=== PATIENT | female | born 1935 | race Caucasian/White ===

== ENCOUNTER 2020-08-22 10:08 | Emergency (ER) | payer OTHER ==
[2020-08-22 10:12] VITALS: PULSE 68; RESP 18; TEMP 98
[2020-08-22] MEDS ORDERED: KETOROLAC 15 MG/ML 1 ML VIAL IM STA (10:30)
--- NOTE | 2020-08-22 10:42 | ED ---
General Adult HPI - General Chief complaint: Extremity Problem,Nontraumatic Stated complaint: Leg pain Time Seen by Provider: 08/22/20 10:14 Source: patient, RN notes reviewed Mode of arrival: wheelchair Limitations: no limitations - History of Present Illness Initial comments: 85-year-old female presents to the emergency room for right leg pain. Patient reports that for about 1 week now she had pain in her right groin. States it is painful to walk on. States it is painful to flex her hip. Patient does not recall injuring this. Patient does states she had new insoles in her shoes and thinks this could've contributed. States she put these in a couple weeks before her hip started hurting. She states sometimes the pain shoots down her leg. She denies any associated back pain or pain in the buttock. Patient denies weakness in the leg. Patient has no other complaints at this time including shortness of breath, chest pain, abdominal pain, nausea or vomiting, headache, or visual changes.. - Related Data Allergies Allergy/AdvReac Type Severity Reaction Status Date / Time codeine AdvReac Vomiting Verified 08/22/20 10:13 Review of Systems ROS Statement: Those systems with pertinent positive or pertinent negative responses have been documented in the HPI. ROS Other: All systems not noted in ROS Statement are negative. Past Medical History Past Medical History: Hypertension History of Any Multi-Drug Resistant Organisms: None Reported Past Surgical History: Cholecystectomy, Hysterectomy Past Psychological History: No Psychological Hx Reported Smoking Status: Never smoker Past Alcohol Use History: None Reported Past Drug Use History: None Reported General Exam Limitations: no limitations General appearance: alert, in no apparent distress Head exam: Present: atraumatic, normocephalic, normal inspection Eye exam: Present: normal appearance, PERRL, EOMI. Absent: scleral icterus, conjunctival injection, periorbital swelling ENT exam: Present: normal exam, mucous membranes moist Neck exam: Present: normal inspection, full ROM. Absent: tenderness, meningism us, lymphadenopathy Respiratory exam: Present: normal lung sounds bilaterally. Absent: respiratory distress, wheezes, rales, rhonchi, stridor Cardiovascular Exam: Present: regular rate, normal rhythm, normal heart sounds. Absent: systolic murmur, diastolic murmur, rubs, gallop, clicks GI/Abdominal exam: Present: soft, normal bowel sounds. Absent: distended, tenderness, guarding, rebound, rigid Extremities exam: Present: tenderness (Minimal tenderness to the groin area.), normal capillary refill (Capillary refill less than 2 seconds, DP and PT pulses 2+.), other (Pain with passive flexion of the right hip. Pain with external rotation of the right leg in the groin. There is no edema, erythema, or ecchymosis). Absent: full ROM (Patient has about 90 flexion of the right hip which does elicit pain. Full range of motion of the right knee and ankle.), pedal edema, joint swelling, calf tenderness (Negative Homans sign) Neurological exam: Present: alert Course Vital Signs 08/22/20 10:10 Temperature 98.0 F Pulse Rate 68 Respiratory 18 Rate Blood Pressure 188/85 O2 Sat by Pulse 97 Oximetry Medical Decision Making - Medical Decision Making Vitals are stable. Patient does have a history of hypertension. Patient is well-appearing. Neurovascular status intact in the right lower extremity. Patient has tenderness of the groin area. No erythema or edema. No evidence of hernia. Pain is with external rotation of the hip and flexion of the hip. States the pain worsens with movement. States she is limping. Symptoms are consistent with a musculoskeletal pain. X-ray was obtained which showed no acute process. Patient was given Toradol. Recommended anti-inflammatories and resting the hip. Recommend she follow up with her doctor for repeat x-rays if symptoms do not improve. She is aware to return for any worsening symptoms. Patient's son can help her around the house. discussed with Dr Whitfield Disposition Clinical Impression: Hip pain, right Disposition: HOME SELF-CARE Condition: Good Instructions (If sedation given, give patient instructions): Hip Pain (ED) Additional Instructions: Please take Motrin and Tylenol for pain. Take 2 to 3 pills of 200 mg Motrin three time a day. Alternate with tylenol. Try to rest the hip. Follow-up with your doctor. If symptoms do not improve you should have a repeat x-ray in 7-10 days. Return to the emergency room for any worsening symptoms. Is patient prescribed a controlled substance at d/c from ED?: No Referrals: Nonstaff,Physician [Primary Care Provider] - 1-2 days Time of Disposition: 11:30
--- NOTE | 2020-08-22 11:07 | XR ---
EXAMINATION TYPE: XR Hip RT and AP Pelvis DATE OF EXAM: 08/22/2020 COMPARISON: None HISTORY: Pain TECHNIQUE: AP pelvis and two-view right hip FINDINGS: No acute fractures are evident. Sacroiliac joint and symphysis pubis are normal. Femoral he ads articulate with the acetabulum. Joint spaces appear preserved. Follow up exams can be performed 7-10 days from acute trauma for continued pain. IMPRESSION: 1. No acute osseous abnormality account for right hip pain
[2020-08-22] MEDS ORDERED: traMADol 50 MG STARTER PACK 3 TAB BTL PO STA (11:20)
[2020-08-22] MEDS ORDERED: ONDANSETRON 4 MG ODT STARTER PACK 2 TAB BTL PO STA (11:20)
[2020-08-22 12:00] VITALS: BP 161/76
== END 2020-08-22 12:01 | disposition home or self-care (01) ==
LOC: EC 10:08
DX: M25.551 Pain in right hip (principal); I10 Essential (primary) hypertension; Z88.5 Allergy status to narcotic agent; Z90.49 Acquired absence of other specified parts of digestive tract; Z90.710 Acquired absence of both cervix and uterus; X58.XXXA Exposure to other specified factors, initial encounter
CPT/HCPCS: 73502; 99283; 96372; J1885; S0119